=== PATIENT | male | born 1955 | race Caucasian/White ===

== ENCOUNTER 2022-05-19 16:58 | Emergency (ER) | payer MEDICARE, OTHER ==
[~2022-05-19] VITALS: Ht 167.6 cm; Wt 83.9 kg
--- NOTE | 2022-05-19 19:36 | EKG ---
[facility] [address] [place] [address] Signed Normal sinus rhythm ST elevation, consider inferior injury or acute infarct ACUTE CT / STEMI Consider right ventricular involvement in acute inferior infarct Abnormal ECG No previous ECGs available Confirmed by Jj Gordon MD () on 05/19/2022 7:36:01 PM Electronically Signed By: JJ GORDON MD 05/19/221935 PATIENT NAME: GABRIEL YING Electrocardiogram DATE OF : 55 PHYSICIAN: JJ GORDON MD REPORT #: [id number] REPORT IS CONFIDENTIAL AND NOT TO BE RELEASED WITHOUT AUTHORIZATION
== END 2022-05-19 17:32 | disposition short-term general hospital (02) ==
LOC: ED 16:58
DX: I21.3 ST elevation (STEMI) myocardial infarction of unspecified site (principal); Z20.822 Contact with and (suspected) exposure to COVID-19
CPT/HCPCS: 36415; 71045; 80053; 83735; 84484; 85025; 85610; 85730; 93005; 93010; 96374; 99285-25; C9803; J1644; U0003